=== PATIENT | male | born 2005 | race Two or more races ===

== ENCOUNTER 2024-01-27 12:03 | Emergency (ER) | payer MEDICAID, OTHER ==
[~2024-01-27] VITALS: Ht 185.4 cm; Wt 100.0 kg
[2024-01-27] MEDS: MORPHINE SULFATE INJ 2 MG/ml SYRG IV ONE (12:43)
[2024-01-27] MEDS: ONDANSETRON HCL 4 MG/2 ML VIAL IV ONE (12:43)
[2024-01-27 13:10] LABS: Basophils # (auto) 0 10 ^3/uL (0-0.2); Basophils % (auto) 0.3 % (0.0-2.0); Eosinophils # (auto) 0 10 ^3/uL (0-0.8); Eosinophils % (auto) 0.1 % (0.0-7.0); Hematocrit 45.1 % (41.0-53.0); Hemoglobin 15.4 g/dL (13.5-17.5); Lymphocytes # (auto) 0.8 10 ^3/uL (0.4-5.4); Lymphocytes % (auto) 12.3 % (10.0-50.0); Mean Corpuscular Hemoglobin 31.5 pg (28.0-32.0); Mean Corpuscular Hgb Conc. 34.1 g/dL (32.0-36.0); Mean Corpuscular Volume 92.4 fL (80.0-100.0); Monocytes # (auto) 0.7 10 ^3/uL (0-1.3); Monocytes % (auto) 10.9 % (0.0-12.0); Neutrophils % (auto) 76.4 % (37.0-80.0); Nucleated Red Blood Cells % 0.1 %; Red Blood Cells 4.88 10^6/uL (4.5-5.90); Red Cell Distribution Width 13.2 % (11.8-14.3); White Blood Cell 6.6 10^3/uL (4.4-10.8)
[2024-01-27] MEDS: IOHEXOL 300 MG/ML 100ML BOTTLE IJ ONE (13:23)
[2024-01-27 13:28] LABS: INR 1.06 (0.9-1.15); Partial Thromboplastin Time 25.6 SEC (24.5-34.5); Prothrombin Time 11.2 sec (9.3-11.8)
[2024-01-27 13:31] LABS: Alanine Aminotransferase 80 U/L (7-40); Albumin 4.7 g/dL (3.2-4.8); Alkaline Phosphatase 89 U/L (46-116); Anion Gap 3 (5-15); Aspartate Aminotransferase 61 U/L (13-40); BUN/Creatinine Ratio 12.5 (10.0-20.0); Blood Urea Nitrogen 15 mg/dL (9-23); Calcium 10.1 mg/dL (8.5-10.1); Carbon Dioxide 32 mmol/L (20-30); Chloride 104 mmol/L (98-107); Glucose 98 mg/dL (74-106); Potassium 4.1 mmol/L (3.5-5.1); Sodium 139 mmol/L (136-145)
[2024-01-27 13:32] LABS: Total Protein 7.5 g/dL (5.7-8.2)
[2024-01-27 15:04] VITALS: PULSE 80; RESP 16; O2SAT 98
[2024-01-27 18:49] VITALS: BP 114/86; PULSE 88; RESP 18; TEMP 98.3; O2SAT 98
== END 2024-01-27 17:30 | disposition short-term general hospital (02) ==
LOC: ER 12:03 → EDBD 12:03 → ER 17:30
DX: S27.0XXA Traumatic pneumothorax, initial encounter (principal); S22.41XA Multiple fractures of ribs, right side, initial encounter for closed fracture; S42.031A Displaced fracture of lateral end of right clavicle, initial encounter for closed fracture; S42.191A Fracture of other part of scapula, right shoulder, initial encounter for closed fracture; J45.909 Unspecified asthma, uncomplicated; R51.9 Headache, unspecified; V89.2XXA Person injured in unspecified motor-vehicle accident, traffic, initial encounter; Y93.89 Activity, other specified; Y92.89 Other specified places as the place of occurrence of the external cause; Y99.8 Other external cause status
CPT/HCPCS: 36415; 70450; 71250; 72125; 73030; 74176; 80053; 84484; 85025; 85610; 85730; 96374; 96375; 99285; J2270; J2405; Q9967